=== PATIENT | male | born 1985 | race African-American/Black ===

== ENCOUNTER 2017-11-12 10:14 | Emergency (ER) | payer OTHER ==
[2017-11-12 10:18] VITALS: BP 145/69; PULSE 82; TEMP 99; BMI 27.8
--- NOTE | 2017-11-12 12:42 | PDOC ---
History of Present Illness - General Stated Complaint: LT FINGER WOUND Time Seen by Provider: 11/12/17 12:15 History Source: Patient Exam Limitations: No Limitations - History of Present Illness Initial Comments: 11/12/17 16:24 CHIEF COMPLAINT: Infected cuticle to left fourth finger HISTORY OF PRESENT ILLNESS: Patient is a 32-year-old male who reports chronically biting his cuticles and frequently develops infection or cuticle base presents now with infection to left fourth lateral cuticle base. No fever Past History - Past Medical History Allergies/Adverse Reactions: Allergies Allergy/AdvReac Type Severity Reaction Status Date / Time No Known Allergies Allergy Verified 11/12/17 10:18 Home Medications: Ambulatory Orders Cephalexin Monohydrate [Keflex -] 500 mg PO Q8H #30 capsule 11/12/17 COPD: No Other medical history: methythemioma - Suicide/Smoking/Psychosocial Hx Smoking History: Never smoked Review of Systems - Review of Systems Constitutional: No: Fever Musculoskeletal: No: Joint Pain, Joint Swelling, Muscle Weakness, Joint Stiffness Integumentary: Yes: Erythema, Other (swelling to left lateral fourth finger cuticle base) Neurological: No: Symptoms reported Hematologic/Lymphatic: No: Symptoms Reported All Other Systems: Reviewed and Negative *Physical Exam - Vital Signs Last Vital Signs Temp Pulse Resp BP Pulse Ox 99 F 82 18 145/69 99 11/12/17 10:15 11/12/17 10:15 11/12/17 10:15 11/12/17 10:15 11/12/17 10:15 - Physical Exam General Appearance: Yes: Appropriately Dressed. No: Apparent Distress Respiratory/Chest: positive: Lungs Clear, Normal Breath Sounds Cardiovascular: positive: Regular Rhythm, Regular Rate Lymphatic: negative: Adenopathy Musculoskeletal: positive: Normal Inspection Extremity: positive: Normal Capillary Refill, Swelling, Erythema (to left lateral fourth finger cuticle base.) Integumentary: positive: Erythema, Swelling. negative: Ecchymosis, Bruising Neurologic: positive: Alert, Normal Mood/Affect Medical Decision Making - Medical Decision Making 11/12/17 16:26 A/P: Patient with paronychia area cleansed with Betadine and using an 18-gauge needle cuticle from nail base with pustulant discharge removed. Patient to perform warm water soaks 4 times a day, Keflex, return if any increased redness swelling or signs of infection. *DC/Admit/Observation/Transfer Diagnosis at time of Disposition: Paronychia of finger of right hand - Discharge Dispostion Disposition: HOME Condition at time of disposition: Stable Admit: No - Prescriptions Prescriptions: Cephalexin Monohydrate [Keflex -] 500 mg PO Q8H #30 capsule - Referrals Referrals: Vincent Bonilla MD [Primary Care Provider] - - Patient Instructions Printed Discharge Instructions: DI for Wound Infection Additional Instructions: Warm soak to finger Antibiotics as ordered. If any increased pain, redness, swelling or other concerns return to the ER. - Post Discharge Activity
== END 2017-11-12 12:44 | disposition home or self-care (01) ==
LOC: JERFT 10:14
PROC: 0H9GXZZ Drainage of Left Hand Skin, External Approach (ICD-10-PCS; principal; 2017-11-12)
DX: L03.012 Cellulitis of left finger (principal)
CPT/HCPCS: 99281-25